=== PATIENT | male | born 1990 | race Caucasian/White ===

== ENCOUNTER 2019-01-30 13:55 | Inpatient (IN) | payer MEDICAID, OTHER ==
[~2019-01-30] VITALS: Ht 188 cm; Wt 86.7 kg
[2019-01-30] MEDS ORDERED: HYDR-4031 PO (14:00)
[2019-01-30] MEDS ORDERED: PROZ10 PO (14:00)
[2019-01-30 15:03] LABS: BASOPHILS % (AUTO) 0.8 % (0.0-2.0); EOSINOPHILS % (AUTO) 4.6 % (1.0-6.0); HEMOGLOBIN 13.7 g/dL (13.5-17.5); LYMPHOCYTES # (AUTO) 1.7 K/uL (1.0-4.8); LYMPHOCYTES % (AUTO) 31.8 % (22.0-44.0); MEAN CORPUSCULAR HEMOGLOBIN 29.5 pg (26.0-34.0); MEAN CORPUSCULAR HGB CONC 33.5 G/dL (31.0-37.0); MEAN CORPUSCULAR VOLUME 88 fL (80-100); MONOCYTES # (AUTO) 0.5 K/uL (0.1-1.0); MONOCYTES % (AUTO) 8.6 % (2.0-9.0); NEUTROPHILS # (AUTO) 2.9 K/uL (1.8-7.7); NEUTROPHILS % (AUTO) 54.2 % (40.0-70.0); PLATELET COUNT (AUTO) 385 K/uL (150-450); RED BLOOD CELL COUNT(AUTO) 4.66 MIL/uL (4.50-5.90); RED CELL DISTRIBUTION WIDTH 13.2 % (11.5-14.5)
[2019-01-30 15:16] LABS: ANION GAP 5 mmol/L (8-16); CALCIUM, TOTAL 8.8 mg/dL (8.8-10.5); CARBON DIOXIDE 33 mmol/L (22-29); CHLORIDE 105 mmol/L (98-107); CREATININE 1.02 mg/dL (0.60-1.30); GLOMERULAR FILTR. RATE CALC > 60 mL/min (>60); GLUCOSE,RANDOM 98 mg/dL (70-110); POTASSIUM 4.3 mmol/L (3.5-5.1); SODIUM SERUM 143 mmol/L (136-145); UREA NITROGEN, BLOOD 13 mg/dL (7-18)
[2019-01-30 15:22] LABS: ALANINE AMINOTRANSFERASE 18 U/L (12-78); ALBUMIN 3.4 g/dL (3.4-5.0); ALKALINE PHOSPHATASE 72 U/L (46-116); ASPARTATE AMINOTRANSFERASE 12 U/L (15-37); BILIRUBIN,TOTAL 0.3 mg/dL (0.1-1.0); TOTAL PROTEIN, SERUM 6.4 g/dL (6.4-8.2)
[2019-01-30] MEDS ORDERED: HALOPERIDOL 5 MG TABLET PO PRN (16:00)
[2019-01-30 16:13] LABS: AMPHET/METH SCREEN,URINE POSITIVE (NEGATIVE); BARBITURATE SCREEN, URINE NEGATIVE (NEGATIVE); BENZODIAZEPINES SCREEN,URINE NEGATIVE (NEGATIVE); CANNABINOID SCREEN,URINE NEGATIVE (NEGATIVE); COCAINE SCREEN,URINE NEGATIVE (NEGATIVE); METHADONE SCREEN, URINE NEGATIVE (NEGATIVE); OPIATE SCREEN,URINE NEGATIVE (NEGATIVE); PHENCYCLIDINE SCREEN,URINE NEGATIVE (NEGATIVE)
[2019-01-30 18:08] VITALS: BP 131/84
[2019-01-30] MEDS: LORazepam 2 MG TABLET PO PRN (20:14)
[2019-01-30] MEDS ORDERED: ACETAMINOPHEN 325 MG TABLET PO PRN (21:30)
[2019-01-30] MEDS ORDERED: PETROLATUM,WHITE 28 GM JELLY TP PRN (21:30)
[2019-01-30] MEDS ORDERED: LOPERAMIDE HCL 2 MG CAPSULE PO PRN (21:30)
[2019-01-30] MEDS ORDERED: DOCUSATE SODIUM 100 MG CAPSULE PO PRN (21:30)
[2019-01-30] MEDS ORDERED: GuaiFENesin/D-METHORPHAN [SUGAR-FREE] 200-20MG/10 ML SYRUP UDCUP PO PRN (21:30)
[2019-01-30] MEDS ORDERED: ONDANSETRON HCL 4 MG TABLET PO PRN (21:30)
[2019-01-30] MEDS ORDERED: IBUPROFEN 400 MG TABLET PO PRN (21:30)
[2019-01-30] MEDS ORDERED: ALBUTEROL SULFATE HFA 90 MCG/PUFF 8 GM INHALER IH PRN (21:30)
[2019-01-30] MEDS ORDERED: CloNIDine HCL 0.1 MG TABLET PO PRN (21:30)
[2019-01-30] MEDS ORDERED: MAGNESIUM HYDROXIDE SUSPENSION 30 ML UDCUP PO PRN (21:30)
[2019-01-30] MEDS ORDERED: NICOTINE 14 MG/24 HOUR PATCH TD PRN (21:30)
[2019-01-30] MEDS ORDERED: MAG HYDROX/AL HYDROX/SIMETH ES 30 ML SUSPENSION UDCUP PO PRN (21:30)
[2019-01-31 07:13] LABS: BASOPHILS % (AUTO) 0.8 % (0.0-2.0); EOSINOPHILS % (AUTO) 4.8 % (1.0-6.0); HEMATOCRIT 42.8 % (41-53); HEMOGLOBIN 14.4 g/dL (13.5-17.5); LYMPHOCYTES # (AUTO) 1.8 K/uL (1.0-4.8); LYMPHOCYTES % (AUTO) 41.3 % (22.0-44.0); MEAN CORPUSCULAR HEMOGLOBIN 29.7 pg (26.0-34.0); MEAN CORPUSCULAR HGB CONC 33.7 G/dL (31.0-37.0); MEAN CORPUSCULAR VOLUME 88 fL (80-100); MONOCYTES # (AUTO) 0.4 K/uL (0.1-1.0); MONOCYTES % (AUTO) 8.3 % (2.0-9.0); NEUTROPHILS % (AUTO) 44.8 % (40.0-70.0); PLATELET COUNT (AUTO) 372 K/uL (150-450); RED BLOOD CELL COUNT(AUTO) 4.85 MIL/uL (4.50-5.90); RED CELL DISTRIBUTION WIDTH 13.4 % (11.5-14.5)
[2019-01-31 07:25] LABS: HEMOGLOBIN A1C 5.3 % (4.5-6.2)
[2019-01-31 07:46] LABS: ALANINE AMINOTRANSFERASE 18 U/L (12-78); ALBUMIN 3.4 g/dL (3.4-5.0); ALKALINE PHOSPHATASE 66 U/L (46-116); ANION GAP 8 mmol/L (8-16); ASPARTATE AMINOTRANSFERASE 8 U/L (15-37); BILIRUBIN,TOTAL 0.3 mg/dL (0.1-1.0); CALCIUM, TOTAL 9.2 mg/dL (8.8-10.5); CARBON DIOXIDE 28 mmol/L (22-29); CHLORIDE 105 mmol/L (98-107); CHOL/HDL RATIO 3.3 (4.2-7.3); CHOLESTEROL 116 mg/dL (131-200); CREATININE 0.89 mg/dL (0.60-1.30); GLOMERULAR FILTR. RATE CALC > 60 mL/min (>60); GLUCOSE,RANDOM 87 mg/dL (70-110); HDL CHOLESTEROL 35 mg/dL (40-60); LDL CHOL (CALC.) 60 mg/dL (0-130); POTASSIUM 4.5 mmol/L (3.5-5.1); SODIUM SERUM 141 mmol/L (136-145); TOTAL PROTEIN, SERUM 5.9 g/dL (6.4-8.2); TRIGLYCERIDES 105 mg/dL (15-150); UREA NITROGEN, BLOOD 13 mg/dL (7-18)
[2019-01-31 09:50] VITALS: BP 108/52
[2019-01-31] MEDS: ARIPiprazole 5 MG TABLET PO SCH (14:04)
[2019-01-31] MEDS: FLUoxetine HCL 10 MG CAPSULE PO SCH (14:25)
[2019-01-31 17:00] VITALS: BP 99/45
[2019-01-31] MEDS: LORazepam 2 MG TABLET PO PRN (20:05)
[2019-02-01 01:38] VITALS: BP 127/78
[2019-02-01] MEDS: FLUoxetine HCL 10 MG CAPSULE PO SCH (10:11)
[2019-02-01] MEDS: ARIPiprazole 5 MG TABLET PO SCH (10:11)
[2019-02-01 11:12] VITALS: BP 108/68
[2019-02-01] MEDS: LORazepam 2 MG TABLET PO PRN ×3 (11:31→20:23)
[2019-02-01 17:00] VITALS: BP 121/61
[2019-02-02 08:44] VITALS: BP 113/63
[2019-02-02] MEDS: FLUoxetine HCL 10 MG CAPSULE PO SCH (09:09)
[2019-02-02] MEDS: ARIPiprazole 5 MG TABLET PO SCH (09:09)
[2019-02-02] MEDS: LORazepam 2 MG TABLET PO PRN ×2 (16:00→20:14)
[2019-02-02 16:35] VITALS: BP 117/74
[2019-02-03] MEDS: ARIPiprazole 5 MG TABLET PO SCH (08:32)
[2019-02-03] MEDS: FLUoxetine HCL 10 MG CAPSULE PO SCH (08:32)
[2019-02-03 08:57] VITALS: BP 143/81
[2019-02-03] MEDS: LORazepam 2 MG TABLET PO PRN (15:48)
[2019-02-03 16:43] VITALS: BP 112/54
[2019-02-03] MEDS: ZOLPIDEM TARTRATE 10 MG TABLET PO PRN (20:16)
[2019-02-04] MEDS: ARIPiprazole 5 MG TABLET PO SCH (09:04)
[2019-02-04] MEDS: FLUoxetine HCL 10 MG CAPSULE PO SCH (09:04)
[2019-02-04 09:41] VITALS: BP 130/60
[2019-02-04] MEDS: LORazepam 2 MG TABLET PO PRN ×2 (13:02→17:12)
[2019-02-04 18:22] VITALS: BP 128/70
[2019-02-04] MEDS: ZOLPIDEM TARTRATE 10 MG TABLET PO PRN (20:12)
[2019-02-05] MEDS: FOLIC ACID 1 MG TABLET PO SCH (09:00)
[2019-02-05] MEDS: ARIPiprazole 5 MG TABLET PO SCH (09:00)
[2019-02-05] MEDS: FLUoxetine HCL 10 MG CAPSULE PO SCH (09:01)
[2019-02-05 09:33] VITALS: BP 116/70
[2019-02-05] MEDS: LORazepam 2 MG TABLET PO PRN ×2 (12:23→17:28)
[2019-02-05 17:22] VITALS: BP 137/85
[2019-02-05] MEDS: ZOLPIDEM TARTRATE 10 MG TABLET PO PRN (21:00)
[2019-02-06 08:26] VITALS: BP 124/74
[2019-02-06] MEDS: FOLIC ACID 1 MG TABLET PO SCH (10:00)
[2019-02-06] MEDS: FLUoxetine HCL 10 MG CAPSULE PO SCH (10:00)
[2019-02-06] MEDS: ARIPiprazole 5 MG TABLET PO SCH (10:00)
[2019-02-06] MEDS ORDERED: ARIP5TAB8 PO (11:24)
[2019-02-06] MEDS ORDERED: FOLI1 PO (11:40)
== END 2019-02-06 12:00 | disposition home or self-care (01) | DRG 750 ==
LOC: EMS 13:57 → 3EI 16:27
DX: F25.1 Schizoaffective disorder, depressive type (principal); R45.851 Suicidal ideations; Z59.0 Homelessness; F15.10 Other stimulant abuse, uncomplicated; D72.819 Decreased white blood cell count, unspecified; F10.10 Alcohol abuse, uncomplicated; Z79.899 Other long term (current) drug therapy; Z81.8 Family history of other mental and behavioral disorders
CPT/HCPCS: 83036; 84443; G0480

== ENCOUNTER 2019-02-20 11:56 | Inpatient (IN) | payer MEDICAID, OTHER ==
[~2019-02-20] VITALS: Ht 188 cm; Wt 83.9 kg
[~2019-02-20 11:56] MED LIST: ARIP5TAB8 PO; FOLI1 PO; PROZ10 PO
[2019-02-20] MEDS ORDERED: HYDR-4031 PO (12:09)
[2019-02-20] MEDS ORDERED: IBUP-2071 PO (12:09)
[2019-02-20] MEDS ORDERED: OLAN5TAB2 PO (12:09)
[2019-02-20] MEDS ORDERED: HYDR-3110 PO (12:09)
[2019-02-20] MEDS ORDERED: FLUO-191 PO (12:09)
[2019-02-20] MEDS ORDERED: TRAZ-252 PO (12:09)
[2019-02-20 12:16] LABS: BASOPHILS % (AUTO) 0.5 % (0.0-2.0); EOSINOPHILS % (AUTO) 7.5 % (1.0-6.0); HEMATOCRIT 41.8 % (41-53); HEMOGLOBIN 13.9 g/dL (13.5-17.5); LYMPHOCYTES # (AUTO) 1.6 K/uL (1.0-4.8); LYMPHOCYTES % (AUTO) 26.4 % (22.0-44.0); MEAN CORPUSCULAR HEMOGLOBIN 29.8 pg (26.0-34.0); MEAN CORPUSCULAR HGB CONC 33.4 G/dL (31.0-37.0); MEAN CORPUSCULAR VOLUME 89 fL (80-100); MONOCYTES # (AUTO) 0.5 K/uL (0.1-1.0); NEUTROPHILS # (AUTO) 3.4 K/uL (1.8-7.7); NEUTROPHILS % (AUTO) 56.6 % (40.0-70.0); PLATELET COUNT (AUTO) 298 K/uL (150-450); RED BLOOD CELL COUNT(AUTO) 4.69 MIL/uL (4.50-5.90); RED CELL DISTRIBUTION WIDTH 13.7 % (11.5-14.5)
[2019-02-20 12:22] LABS: ANION GAP 7 mmol/L (8-16); CALCIUM, TOTAL 9.1 mg/dL (8.8-10.5); CARBON DIOXIDE 29 mmol/L (22-29); CHLORIDE 103 mmol/L (98-107); CREATININE 0.94 mg/dL (0.60-1.30); GLOMERULAR FILTR. RATE CALC > 60 mL/min (>60); GLUCOSE,RANDOM 91 mg/dL (70-110); POTASSIUM 4.2 mmol/L (3.5-5.1); SODIUM SERUM 139 mmol/L (136-145); UREA NITROGEN, BLOOD 22 mg/dL (7-18)
[2019-02-20 12:28] LABS: ALANINE AMINOTRANSFERASE 33 U/L (12-78); ALBUMIN 3.8 g/dL (3.4-5.0); ALKALINE PHOSPHATASE 68 U/L (46-116); ASPARTATE AMINOTRANSFERASE 28 U/L (15-37); BILIRUBIN,TOTAL 1.2 mg/dL (0.1-1.0); TOTAL PROTEIN, SERUM 6.8 g/dL (6.4-8.2)
[2019-02-20 13:06] LABS: AMPHET/METH SCREEN,URINE POSITIVE (NEGATIVE); BARBITURATE SCREEN, URINE NEGATIVE (NEGATIVE); BENZODIAZEPINES SCREEN,URINE NEGATIVE (NEGATIVE); CANNABINOID SCREEN,URINE NEGATIVE (NEGATIVE); COCAINE SCREEN,URINE NEGATIVE (NEGATIVE); METHADONE SCREEN, URINE NEGATIVE (NEGATIVE); OPIATE SCREEN,URINE NEGATIVE (NEGATIVE); PHENCYCLIDINE SCREEN,URINE NEGATIVE (NEGATIVE)
[2019-02-20] MEDS ORDERED: DiphenhydrAMINE HCL 50 MG CAPSULE PO ONE (14:30)
[2019-02-20] MEDS ORDERED: HALOPERIDOL 5 MG TABLET PO ONE (14:30)
[2019-02-20] MEDS ORDERED: ZOLPIDEM TARTRATE 10 MG TABLET PO PRN (15:00)
[2019-02-20] MEDS ORDERED: HALOPERIDOL 5 MG TABLET PO PRN (15:00)
[2019-02-20 18:36] VITALS: BP 102/56
[2019-02-20] MEDS ORDERED: MAG HYDROX/AL HYDROX/SIMETH ES 30 ML SUSPENSION UDCUP PO PRN (19:30)
[2019-02-20] MEDS ORDERED: GuaiFENesin/D-METHORPHAN [SUGAR-FREE] 200-20MG/10 ML SYRUP UDCUP PO PRN (19:30)
[2019-02-20] MEDS ORDERED: NICOTINE 14 MG/24 HOUR PATCH TD PRN (19:30)
[2019-02-20] MEDS ORDERED: IBUPROFEN 400 MG TABLET PO PRN (19:30)
[2019-02-20] MEDS ORDERED: PETROLATUM,WHITE 28 GM JELLY TP PRN (19:30)
[2019-02-20] MEDS ORDERED: MAGNESIUM HYDROXIDE SUSPENSION 30 ML UDCUP PO PRN (19:30)
[2019-02-20] MEDS ORDERED: ACETAMINOPHEN 325 MG TABLET PO PRN (19:30)
[2019-02-20] MEDS ORDERED: ALBUTEROL SULFATE HFA 90 MCG/PUFF 8 GM INHALER IH PRN (19:30)
[2019-02-20] MEDS ORDERED: DOCUSATE SODIUM 100 MG CAPSULE PO PRN (19:30)
[2019-02-20] MEDS ORDERED: CloNIDine HCL 0.1 MG TABLET PO PRN (19:30)
[2019-02-20] MEDS ORDERED: ONDANSETRON HCL 4 MG TABLET PO PRN (19:30)
[2019-02-20] MEDS ORDERED: LOPERAMIDE HCL 2 MG CAPSULE PO PRN (19:30)
[2019-02-20 19:51] VITALS: BP 101/73
[2019-02-21 05:51] VITALS: BP 108/69
[2019-02-21] MEDS ORDERED: IBUPROFEN 400 MG TABLET PO SCH (06:00)
[2019-02-21 07:00] LABS: BASOPHILS % (AUTO) 0.5 % (0.0-2.0); EOSINOPHILS % (AUTO) 7.2 % (1.0-6.0); HEMATOCRIT 40.3 % (41-53); HEMOGLOBIN 13.3 g/dL (13.5-17.5); LYMPHOCYTES # (AUTO) 2.2 K/uL (1.0-4.8); LYMPHOCYTES % (AUTO) 43.2 % (22.0-44.0); MEAN CORPUSCULAR HEMOGLOBIN 29.7 pg (26.0-34.0); MEAN CORPUSCULAR VOLUME 90 fL (80-100); MONOCYTES # (AUTO) 0.5 K/uL (0.1-1.0); MONOCYTES % (AUTO) 9.5 % (2.0-9.0); NEUTROPHILS % (AUTO) 39.6 % (40.0-70.0); PLATELET COUNT (AUTO) 278 K/uL (150-450); RED BLOOD CELL COUNT(AUTO) 4.48 MIL/uL (4.50-5.90); RED CELL DISTRIBUTION WIDTH 13.8 % (11.5-14.5)
[2019-02-21 07:20] LABS: HEMOGLOBIN A1C 4.7 % (4.5-6.2)
[2019-02-21 07:31] LABS: ALANINE AMINOTRANSFERASE 25 U/L (12-78); ALBUMIN 3.3 g/dL (3.4-5.0); ALKALINE PHOSPHATASE 56 U/L (46-116); ANION GAP 7 mmol/L (8-16); ASPARTATE AMINOTRANSFERASE 15 U/L (15-37); BILIRUBIN,TOTAL 0.6 mg/dL (0.1-1.0); CALCIUM, TOTAL 8.7 mg/dL (8.8-10.5); CARBON DIOXIDE 30 mmol/L (22-29); CHLORIDE 108 mmol/L (98-107); CHOL/HDL RATIO 4.1 (4.2-7.3); CHOLESTEROL 162 mg/dL (131-200); GLOMERULAR FILTR. RATE CALC > 60 mL/min (>60); GLUCOSE,RANDOM 82 mg/dL (70-110); HDL CHOLESTEROL 40 mg/dL (40-60); LDL CHOL (CALC.) 107 mg/dL (0-130); POTASSIUM 4.4 mmol/L (3.5-5.1); SODIUM SERUM 145 mmol/L (136-145); THYROID STIMULATING HORMONE 0.41 uIU/mL (0.36-3.74); TOTAL PROTEIN, SERUM 5.9 g/dL (6.4-8.2); TRIGLYCERIDES 74 mg/dL (15-150); UREA NITROGEN, BLOOD 21 mg/dL (7-18)
[2019-02-21 08:41] VITALS: BP 106/56
[2019-02-21] MEDS: ARIPiprazole 5 MG TABLET PO SCH (12:53)
[2019-02-21] MEDS: FLUoxetine HCL 10 MG CAPSULE PO SCH (15:53)
[2019-02-21] MEDS: LORazepam 2 MG TABLET PO PRN ×2 (15:53→20:55)
[2019-02-21 16:10] VITALS: BP 129/61
[2019-02-21] MEDS: IBUPROFEN 400 MG TABLET PO SCH (21:02)
[2019-02-22 06:21] VITALS: BP 117/72
[2019-02-22] MEDS: IBUPROFEN 400 MG TABLET PO SCH ×3 (06:21→21:35)
[2019-02-22] MEDS: FLUoxetine HCL 10 MG CAPSULE PO SCH (08:33)
[2019-02-22] MEDS: ARIPiprazole 5 MG TABLET PO SCH (08:33)
[2019-02-22] MEDS: LORazepam 2 MG TABLET PO PRN ×2 (13:55→19:49)
[2019-02-22 16:00] VITALS: BP 121/78
[2019-02-23] MEDS: IBUPROFEN 400 MG TABLET PO SCH ×3 (06:09→21:05)
[2019-02-23 06:59] VITALS: BP 145/74
[2019-02-23] MEDS: FLUoxetine HCL 10 MG CAPSULE PO SCH (09:13)
[2019-02-23] MEDS: ARIPiprazole 5 MG TABLET PO SCH (09:13)
[2019-02-23 09:23] VITALS: BP 135/70
[2019-02-23] MEDS ORDERED: TraZODone HCL 50 MG TABLET PO PRN (11:00)
[2019-02-23] MEDS ORDERED: HydrOXYzine PAMOATE 50 MG CAPSULE PO PRN (11:15)
[2019-02-23 18:52] VITALS: BP 109/81
[2019-02-24] MEDS: IBUPROFEN 400 MG TABLET PO SCH (06:10)
[2019-02-24 06:38] VITALS: BP 135/74
[2019-02-24 08:32] LABS: APPEARANCE,URINE CLEAR (CLEAR); BILIRUBIN,URINE NEGATIVE (NEGATIVE); GLUCOSE, URINE (UA) NEGATIVE (NEGATIVE); KETONES,URINE NEGATIVE (NEGATIVE); LEUKOCYTE ESTERASE ,URINE NEGATIVE (NEGATIVE); NITRATE,URINE NEGATIVE (NEGATIVE); OCCULT BLOOD,URINE NEGATIVE (NEGATIVE); PROTEIN,URINE NEGATIVE (NEGATIVE); UROBILINOGEN,URINE 0.2 mg/dL (<=1.0)
[2019-02-24] MEDS: FLUoxetine HCL 10 MG CAPSULE PO SCH (08:50)
[2019-02-24] MEDS: ARIPiprazole 5 MG TABLET PO SCH (08:50)
[2019-02-24 09:33] VITALS: BP 109/60
[2019-02-24] MEDS ORDERED: PROZ10 PO ×2 (11:29→11:48)
[2019-02-24] MEDS ORDERED: ARIP5TAB8 PO (11:48)
== END 2019-02-24 13:50 | disposition home or self-care (01) | DRG 750 ==
LOC: EMS 11:57 → B3A 17:18
DX: F25.1 Schizoaffective disorder, depressive type (principal); R45.851 Suicidal ideations; F15.20 Other stimulant dependence, uncomplicated; D64.9 Anemia, unspecified; F10.10 Alcohol abuse, uncomplicated; F17.210 Nicotine dependence, cigarettes, uncomplicated; F41.9 Anxiety disorder, unspecified; F41.0 Panic disorder [episodic paroxysmal anxiety]; Z59.0 Homelessness; Z81.8 Family history of other mental and behavioral disorders; Z91.5 Personal history of self-harm; Z79.899 Other long term (current) drug therapy; Z71.6 Tobacco abuse counseling; Z71.51 Drug abuse counseling and surveillance of drug abuser; Z71.41 Alcohol abuse counseling and surveillance of alcoholic
CPT/HCPCS: 83036; 84443; 87081; G0480

== ENCOUNTER 2021-09-12 12:18 | Inpatient (IN) | payer MEDICAID, OTHER ==
[~2021-09-12] VITALS: Ht 188 cm; Wt 83.0 kg
[~2021-09-12 12:18] MED LIST changes: +ARIP5TAB37 PO; -ARIP5TAB8 PO; +FLUO10CA24 PO; -FOLI1 PO; -PROZ10 PO
[2021-09-12] MEDS ORDERED: HALOPERIDOL LACTATE 5 MG/ML VIAL IM ONE (13:15)
[2021-09-12] MEDS ORDERED: DiphenhydrAMINE HCL 50 MG/ML VIAL IM ONE (13:15)
[2021-09-12] MEDS ORDERED: LORazepam 2 MG/ML VIAL IM ONE (13:15)
[2021-09-12 13:50] LABS: COVID AG,FIA SOURCE NASOPHARYNGEAL
[2021-09-12 13:54] LABS: BASOPHILS % (AUTO) 0.4 % (0.0-2.0); EOSINOPHILS % (AUTO) 0.7 % (1.0-6.0); HEMATOCRIT 40.3 % (41-53); HEMOGLOBIN 13.9 g/dL (13.5-17.5); LYMPHOCYTES # (AUTO) 0.5 K/uL (1.0-4.8); LYMPHOCYTES % (AUTO) 8.1 % (22.0-44.0); MEAN CORPUSCULAR HEMOGLOBIN 30.3 pg (26.0-34.0); MEAN CORPUSCULAR HGB CONC 34.6 G/dL (31.0-37.0); MEAN CORPUSCULAR VOLUME 87 fL (80-100); MONOCYTES # (AUTO) 0.3 K/uL (0.1-1.0); MONOCYTES % (AUTO) 4.7 % (2.0-9.0); NEUTROPHILS # (AUTO) 5.8 K/uL (1.8-7.7); NEUTROPHILS % (AUTO) 86.1 % (40.0-70.0); PLATELET COUNT (AUTO) 333 K/uL (150-450); RED BLOOD CELL COUNT(AUTO) 4.61 MIL/uL (4.50-5.90); RED CELL DISTRIBUTION WIDTH 12.8 % (11.5-14.5)
[2021-09-12 14:01] LABS: ANION GAP 10 mmol/L (8-16); CALCIUM, TOTAL 8.9 mg/dL (8.8-10.5); CARBON DIOXIDE 30 mmol/L (22-29); CHLORIDE 101 mmol/L (98-107); CREATININE 1.01 mg/dL (0.60-1.30); GLOMERULAR FILTR. RATE CALC > 60 mL/min (>60); GLUCOSE,RANDOM 122 mg/dL (70-110); POTASSIUM 3.6 mmol/L (3.5-5.1); SODIUM SERUM 141 mmol/L (136-145); UREA NITROGEN, BLOOD 25 mg/dL (7-18)
[2021-09-12 14:16] LABS: ALANINE AMINOTRANSFERASE 28 U/L (12-78); ALBUMIN 3.9 g/dL (3.4-5.0); ALKALINE PHOSPHATASE 74 U/L (46-116); ASPARTATE AMINOTRANSFERASE 25 U/L (15-37); BILIRUBIN,TOTAL 0.5 mg/dL (0.1-1.0); CHOLESTEROL 121 mg/dL (131-200); HDL CHOLESTEROL 60 mg/dL (40-60); LDL CHOL (CALC.) 52 mg/dL (0-130); THYROID STIMULATING HORMONE 1.72 uIU/mL (0.36-3.74); TRIGLYCERIDES 45 mg/dL (15-150)
[2021-09-12 15:01] LABS: AMPHET/METH SCREEN,URINE POSITIVE (NEGATIVE); BARBITURATE SCREEN, URINE NEGATIVE (NEGATIVE); BENZODIAZEPINES SCREEN,URINE NEGATIVE (NEGATIVE); CANNABINOID SCREEN,URINE NEGATIVE (NEGATIVE); COCAINE SCREEN,URINE NEGATIVE (NEGATIVE); METHADONE SCREEN, URINE NEGATIVE (NEGATIVE); OPIATE SCREEN,URINE NEGATIVE (NEGATIVE); PHENCYCLIDINE SCREEN,URINE NEGATIVE (NEGATIVE)
[2021-09-12] MEDS ORDERED: ZOLPIDEM TARTRATE 10 MG TABLET PO PRN (16:00)
[2021-09-12] MEDS ORDERED: HALOPERIDOL 5 MG TABLET PO PRN (16:00)
[2021-09-12] MEDS ORDERED: AmLODIPine BESYLATE 5 MG TABLET PO ONE (18:45)
[2021-09-12 19:52] VITALS: BP 162/107
[2021-09-12 23:13] VITALS: BP 157/89
[2021-09-13 01:58] VITALS: BP 151/91
[2021-09-13] MEDS ORDERED: BACITRACIN 28 GM OINTMENT TP PRN (08:15)
[2021-09-13] MEDS ORDERED: MAGNESIUM HYDROXIDE SUSPENSION 30 ML UDCUP PO PRN (08:15)
[2021-09-13] MEDS ORDERED: IBUPROFEN 600 MG TABLET PO PRN (08:15)
[2021-09-13] MEDS ORDERED: CloNIDine HCL 0.1 MG TABLET PO PRN (08:15)
[2021-09-13] MEDS ORDERED: LOPERAMIDE HCL 2 MG CAPSULE PO PRN (08:15)
[2021-09-13] MEDS ORDERED: OMEPRAZOLE 20 MG CAPSULE PO PRN (08:15)
[2021-09-13] MEDS ORDERED: BENZOCAINE/MENTHOL LOZENGE PO PRN (08:15)
[2021-09-13] MEDS ORDERED: PETROLATUM,WHITE 28 GM JELLY TP PRN (08:15)
[2021-09-13] MEDS ORDERED: ONDANSETRON HCL 4 MG TABLET PO PRN (08:15)
[2021-09-13] MEDS ORDERED: ALBUTEROL SULFATE HFA 90 MCG/PUFF 8 GM INHALER IH PRN (08:15)
[2021-09-13] MEDS ORDERED: ACETAMINOPHEN 325 MG TABLET PO PRN (08:15)
[2021-09-13] MEDS ORDERED: DOCUSATE SODIUM 100 MG CAPSULE PO PRN (08:15)
[2021-09-13] MEDS ORDERED: MAG HYDROX/AL HYDROX/SIMETH ES 30 ML SUSPENSION UDCUP PO PRN (08:15)
[2021-09-13 08:17] VITALS: BP 128/68
[2021-09-13 16:12] VITALS: BP 138/72
[2021-09-14 05:42] VITALS: BP 149/88
[2021-09-14 08:17] VITALS: BP 111/62
[2021-09-14] MEDS: FLUoxetine HCL 20 MG CAPSULE PO SCH (08:17)
[2021-09-14] MEDS ORDERED: ARIPiprazole 5 MG TABLET PO SCH (09:00)
[2021-09-14 16:08] VITALS: BP 110/65
[2021-09-15 01:47] VITALS: BP 128/74
[2021-09-15 08:31] VITALS: BP 134/74
[2021-09-15] MEDS: FLUoxetine HCL 20 MG CAPSULE PO SCH (09:11)
[2021-09-15] MEDS: ARIPiprazole 15 MG TABLET PO SCH (09:11)
[2021-09-15] MEDS: LORazepam 2 MG TABLET PO PRN (09:11)
[2021-09-15 16:08] VITALS: BP 117/61
[2021-09-16 05:09] VITALS: BP 114/60
[2021-09-16 08:05] VITALS: BP 122/74
[2021-09-16] MEDS: ARIPiprazole 15 MG TABLET PO SCH (08:30)
[2021-09-16] MEDS: FLUoxetine HCL 20 MG CAPSULE PO SCH (08:30)
[2021-09-16] MEDS: LORazepam 2 MG TABLET PO PRN (08:30)
[2021-09-16 16:32] VITALS: BP 116/72
[2021-09-17 04:32] VITALS: BP 113/65
[2021-09-17] MEDS: FLUoxetine HCL 20 MG CAPSULE PO SCH (08:24)
[2021-09-17] MEDS: ARIPiprazole 15 MG TABLET PO SCH (08:24)
[2021-09-17 10:22] VITALS: BP 114/60
[2021-09-17 16:11] VITALS: BP 114/66
[2021-09-18] MEDS ORDERED: AMLO-257 PO (19:24)
== END 2021-09-17 16:25 | disposition home or self-care (01) | DRG 750 ==
LOC: EMS 12:24 → B3A 16:54
PROVIDERS: ADMIT Psychiatry & Neurology Psychiatry; ATTEND Psychiatry & Neurology Psychiatry
DX: F25.9 Schizoaffective disorder, unspecified (principal); F10.10 Alcohol abuse, uncomplicated; F15.10 Other stimulant abuse, uncomplicated; F32.A Depression, unspecified; F41.9 Anxiety disorder, unspecified; G47.00 Insomnia, unspecified; K59.00 Constipation, unspecified; Z20.822 Contact with and (suspected) exposure to COVID-19; Z87.891 Personal history of nicotine dependence; Z79.899 Other long term (current) drug therapy
CPT/HCPCS: 80053; 80061; 84443; 85025; 99291; G0480; J1200; J1630; J2060